=== PATIENT | female | born 1990 | race Caucasian/White ===

== ENCOUNTER 2024-11-20 15:51 | Inpatient (IN) | payer BC, SELFPAY ==
[2024-11-20] VITALS (17 sets, daily range): BP systolic 118–156; BP diastolic 68–104; PULSE 93–118; RESP 18; TEMP 36.5–37.4; O2SAT 100; BMI 34.7
[2024-11-20] MEDS: LACTATED RINGERS 1000 ML 1,000 ML 125 ML IV (15:45)
[2024-11-20] MEDS: AMPICILLIN 2 GM in 0.9 % SODIUM CHLORIDE Mini-bag 100 ML IVPB (15:46)
--- NOTE | 2024-11-20 16:03 | W.PM.LDBA ---
Subjective History of Present Illness Narrative: Latisha is a 34 year old at 40.2 weeks gestation being admitted to Labor and Delivery for spontaneous onset of labor. She reports she began having irregular contractions last evening but was not able to sleep much. The progressively became more intense and more regular, a more notable change at noon. She denies any bleeding or leaking of fluid. She is supported in labor by her , Venkatesh, and her printed circuit board reworker, Dominga. She is coping well with labor pain and desires a waterbirth. Her full history and physical was dictated by ABDIAZIZ Bhagat on 11/02/2024. Please see this for details. Mild range BP noted on admission labs, remained mild range with repeat. Labs collected with IV placement. Specific Issues/Plans G1 : Venkatesh Tx at 35 03/25 from [facility] H&P completed by ABDIAZIZ Bhagat on 11/02/2024 # GBS + in urine at NOB Recommend antibiotics in labor-planning to treat NOB labs 04/25/2024 Blood type: A+, antibody screen negative.??? Hgb: 13.2??? Platelets: 276??? Rubella: non-immune??? Varicella: not tested, declines RPR: non-reactive??? HBsAg: non-reactive??? Hep C: negative? HIV: negative??? UC: < 10,000 streptococcus (Group B)? GC/Chlamydia: negative/negative??? Pap (08/09): NIL??? Genetic screening: NIPT low risk? Maternal serum screen: 06/07/2024, low risk 1hr gtt (08/04): 124, passed ??? Ultrasounds: 1st trimester: 04/12/2024 Impression: SIUP measuring 8.1 weeks with SRIDHAR of 11/21/2024. Anatomy US: 07/06/2024 Impression: SIUP. Normal anatomic survey. EFW 372 g. OB - Problem Based A/P Additional Plan (1) Pain during labor: Status: Acute (2) GBS bacteriuria: Status: Acute (3) Rubella non-immune status, antepartum: Status: Acute (4) 40 weeks gestation of : Status: Acute Plan ASSESSMENT:? 34 at 40.2 weeks gestation? complicated by:?GBS bacteruria Labor type: Spontaneous, Active labor? Category 1 FHR pattern.?? Labor complicated by: none? GBS positive, membranes intact? ? PLAN:? 1. Routine intrapartum cares as ordered. Continue with expectant management. 2. Monitoring per policy, intermittent unless diagnosis of GHTN. Then continuous monitoring is recommended. 3. Planning unmedicated . Desires water . Consent signed. Hep C negative. Candidate for analgesia of choice, if desired.?? 4. Patient encouraged to reposition and ambulate to promote physiologic labor and .? 5. GBS prophylaxis initiated for GBS positive status. Will treat with antibiotics per protocol. 6. Elevated BP, mild range, on admission. Repeat remained mild range. Planned pre-e labs with IV placement. P/c ratio collected before patient entered the tub. No diagnosis of HTN at this time. Will continue to monitor BP hourly. 7. Anticipate ? Delivery/Labor/Induction Plan Plan: expectant management OB Exam Physical Exam Vital signs: Temp Pulse BP Pulse Ox 97.7 F 101 H 150/99 H 100 11/20/24 15:16 11/20/24 15:31 11/20/24 15:31 11/20/24 15:16 Narrative: Vitals Reviewed Constitutional:? Alert and oriented x3 HEENT:? Normocephalic, atraumatic Neck:? Supple Lungs:? Clear to auscultation bilaterally Heart:? Regular rate and rhythm, no murmur, rub or gallop Abdomen:? Soft, nontender, and gravid. Extremities:? No edema or erythema Cervix: 8 cm/90%/0 station/vertex confirmed by RN with cervical exam NST: 140 bpm/moderate variability/15x15 accelerations/no decelerations/contractions every 2-4 minutes Detailed Labor and Delivery Exam Patient Gravid: Yes
[2024-11-20 16:16] LABS: Hematocrit 35.4 % (33.0-51.0); Mean Corpuscular HGB Conc 34 gm/dL (32-36); Mean Corpuscular Hemoglobin 30 pg (26-34); Mean Corpuscular Volume 88 fL (80-100); Platelet Count* 170 K/uL (140-440); Red Blood Count 4.01 m/uL (4.00-5.20); White Blood Count* 11.34 K/uL (4.50-11.00)
[2024-11-20 16:21] LABS: Slide Review Reflex No
[2024-11-20 16:44] LABS: Alanine Aminotransferase* 36 U/L (4-35); Aspartate Amino Transferase* 31 U/L (12-35); Blood Urea Nitrogen* 11 mg/dL (5-24); Creatinine* 0.6 mg/dL (0.5-1.5); Est. Creatinine Clearance* 114.09; Estimated Glomerular Filt Rate 121 ml/min
[2024-11-20] MEDS: OXYTOCIN 10 UNIT/ML INJ IM (20:04)
[2024-11-20] MEDS: LIDOCAINE 1 % PF 30 ML INJECTION (20:12)
--- NOTE | 2024-11-20 20:53 | W.PM.OBVAGDE ---
OB Procedure Vag Delivery Mother Details Mother Details: Latisha is a 34 year-old, 1, now Para 1, admitted on 11/20/24 at 40.2 weeks gestation. : 1 Para: 1 Weeks Gestation: 40.2 Admission Date: 11/20/24 Additional Details Amniotic Membrane Status: SROM Amniotic Membrane Rupture Date: 11/20/24 Amniotic Membrane Rupture Time: 18:04 Amniotic Membrane Fluid Description: Clear Analgesia/Anesthesia Type: Local Waterbirth: Yes Pitcoin: Yes ([facility] only) Intrapartal Events: None Labor Onset: 12:00 Complete: 18:00 Pushin:00 Heart: heart tones during second stage were intermittently auscultated during labor and reassuring throughout. Delivery Details Delivery Date: 11/20/24 Delivery Time: 19:45 Route of delivery: Infant Gender: Female Infant Viability: Alive; Heart Rate Present Position at Delivery: OA Delivery Details: Patient was admitted for spontaneous onset of labor and progressed normally. She entered the tub at 1555 for labor pain management. SROM of clear fluid noted in the tub at 1804. She frequently changed positions to chris in labor progress. She was assumed complete with pushing at 1800. Vigorous bleeding noted with , heart tones were assessed and were reassuring. of a viable female at 1945, semi-reclined in the tub. Dad assisted in hand over hand delivery of . Vertex delivered OA. No nuchal cord or shoulder. Body delivered easily and without incident. passed to mothers abdomen with a vigorous cry. Cord was clamped and cut at > 5 minutes. APGARS were 8 at one minute and 8 at five minutes respectively. Mouth was bulb suctioned. was taken to the warmer while mother was assisted from the bed. Intact placenta with a 3 vessel cord delivered spontaneously at 2002. Fundus firm. Shallow 2nd degree perineal identified and repaired in typical fashion. Periurethral, central, hemostatic and not repaired. QBL 300 cc + 300 EBL in the tub. Bleeding in the tub was noted during . Mother and baby stable; mother plans to breastfeed. weight 8lb 11 oz. 1 Minute Interval Total Score: 8 5 Minute Interval Total Score: 8 Additional Details Shoulder Dystocia: No Placenta Delivery Time: 20:03 Placental Delivery Description: Spontaneous Delivery repair: Vicryl Procedure Done: Global Blood Loss: 600 Laceration: Perineal - 2nd Degree (shallow repaired; small midline periurethral not repaired) Blood Loss Measurement Type: QBL (+ EBL of tub) Bakri Used: No Sponge/Need Count Correct: Yes Cord Vessel Description: 3 Vessels Event Summary Status: Mother and infant were stable after delivery. Disposition: floor
[2024-11-20] MEDS: ACETAMINOPHEN 500 MG TABLET 1000 MG PO (21:56)
[2024-11-21 04:36] VITALS: BP 136/87; PULSE 93; RESP 16; TEMP 36.5; O2SAT 97
[2024-11-21 07:10] LABS: Hemoglobin* 9.4 gm/dL (12.0-16.0)
[2024-11-21] MEDS: ACETAMINOPHEN 500 MG TABLET 1000 MG PO (07:18)
--- NOTE | 2024-11-21 07:38 | PM.OBPNVD1 ---
OB - PN:Subj Subjective Date Seen: 11/21/24 Patient comments OB post-: no complaints, pain well controlled, tolerating diet and flatus present Crawley status: and doing well Crawley feeding status: exclusively Narrative: Latisha feels well.? Her pain is well controlled with current medications.?She is taking Tylenol and we discussed using ice and sits baths as well. She has no new complaints.? Urinary output is adequate and she is voiding without difficulty.? Has a good appetite, is tolerating a general diet, is passing flatus, and has not had a bowel movement.? Has small amount of rubra lochia.? She is ambulating well.?Baby is fussy and having difficulty with latching and settling. Encouraged assistance and naps as able. OB - PN: Obj Exam Physical Exam: Vital signs: Temp Pulse Resp BP Pulse Ox 97.7 F 93 16 136/87 97 11/21/24 04:36 11/21/24 04:36 11/21/24 04:36 11/21/24 04:36 11/21/24 04:36 Narrative: GENERAL APPEARANCE:? normal affect, alert, no distress? MOOD:? appropriate? CHEST:? clear to auscultation and percussion? HEART:? regular rate and rhythm? ABDOMEN:? soft, non-tender the uterine fundus is U/2 and is appropriate for the stage of recovery.? PERINEUM:? mild edema of the perineum, there is a 2nd laceration that is healing well.? EXTREMITIES:? normal and no edema? OB - PN: Obj Data Labs Labs: Laboratory Results - last 24 hr 11/20/24 11/21/24 15:59 06:57 WBC 11.34 H RBC 4.01 Hgb 12.0 9.4 L Hct 35.4 MCV 88 MCH 30 MCHC 34 Plt Count 170 BUN 11 Creatinine 0.6 Estimated Creat Clear 114.09 Estimated GFR 121 AST 31 ALT 36 H Blood Type A Positive Antibody Screen NEGATIVE OB - PN: A/P Delivery Assessment and Plan (1) GBS bacteriuria: Status: Acute (2) Rubella non-immune status, antepartum: Status: Acute (3) Gestational hypertension: Status: Acute (4) care following vaginal delivery: Status: Acute (5) Lactating mother: Status: Acute Plan day: 1 Plan: routine care Comments: Anticipate discharge home tomorrow.
[2024-11-21 08:24] VITALS: BP 120/83; PULSE 86; RESP 16; TEMP 36.6; O2SAT 96
[2024-11-21] MEDS: FERROUS SULFATE 325 MG TABLET PO (08:28)
[2024-11-21] MEDS: DOCUSATE SODIUM 100 MG CAPSULE PO (08:28)
[2024-11-21 11:40] VITALS: BP 124/83; PULSE 84; RESP 17; TEMP 36.6
[2024-11-21] MEDS: IBUPROFEN 600 MG TABLET PO ×2 (11:51→18:28)
[2024-11-21 16:00] VITALS: BP 123/84; PULSE 91; RESP 18; TEMP 36.7; O2SAT 98
[2024-11-21 20:00] VITALS: BP 127/83; PULSE 98; RESP 18; TEMP 36.9; O2SAT 98
[2024-11-21 23:27] VITALS: BP 125/81; PULSE 96; RESP 20; O2SAT 97
[2024-11-22] MEDS: IBUPROFEN 600 MG TABLET PO ×2 (03:15→09:58)
[2024-11-22 03:48] VITALS: BP 137/83; PULSE 88; RESP 14; TEMP 36.8; O2SAT 96
--- NOTE | 2024-11-22 06:50 | P.DS_ITS ---
DS: Providers Provider Date Seen: 11/22/24 Date of admission: 11/20/24 15:51 Primary care physician: Not a Local Provider Admitting Clinician: Layla Hitchcock CNM Attending Physician on discharge: Layla Hitchcock CNM DS: Diagnosis Discharge Diagnosis (1) care following vaginal delivery: Status: Acute (2) Lactating mother: Status: Acute (3) Gestational hypertension: Status: Acute Exam Narrative: Exam Narrative: GENERAL APPEARANCE:? normal affect, alert, no distress MOOD:? appropriate CHEST:? clear to auscultation HEART:? regular rate and rhythm ABDOMEN:? soft, non-tender the uterine fundus is at Umbilicus, Midline and is appropriate for the stage of recovery. PERINEUM:? mild edema of the perineum, there is a Perineal Laceration,?2nd degree, that is healing well. EXTREMITIES:? normal and no edema Const: Vital Signs, click to edit/add: Vital Signs - 24 hr 11/21/24 08:24 11/21/24 11:40 11/21/24 16:00 Temperature 97.9 F 97.9 F 98.0 F Pulse Rate [Blood Pressure Cuff] 86 84 91 Respiratory Rate 16 17 18 Blood Pressure [Le ft Arm] 120/83 124/83 123/84 Pulse Oximetry 96 98 Oxygen Delivery Me thod Room Air Room Air Room Air 11/21/24 20:00 11/21/24 23:27 11/22/24 03:48 Temperature 98.5 F 98.3 F Pulse Rate [Blood Pressure Cuff] 98 96 88 Respiratory Rate 18 20 14 Blood Pressure [Le ft Arm] 127/83 125/81 137/83 Pulse Oximetry 98 97 96 Oxygen Delivery Me thod Room Air Room Air Room Air Documenting provider has reviewed patient's vital signs: yes OB - DS: Summary Hospital Course Hospital Course: Latisha is a 34 y.o. G 1 P 1 who was admitted to L & D for spontaneous onset of labor. ?She had a NVD that was uncomplicated. The patient feels well. ?The pain is well controlled with current medications. ?She has no new complaints. ?She is breast feeding and reports things are going well. the patient has done well.? Vitals have been stable.? She has remained afebrile.? Has a good appetite, is tolerating a general diet. ?She is voiding without difficulty.? She is passing gas and has not had a bowel movement.? She is ambulating and denies any dizziness.? Has small amount of rubra lochia. She is planning IUD for prevention. Problems: GHTN diagnosed in labor Peripartum Data Infant delivery method: Vaginal complications: none Infant Gender: Female Discharge Plan: Home Status at Discharge Functional status at discharge: independent ambulation Overall status at discharge: patient is progressing back to baseline Time Spent with Patient Time attestation: Total time spent providing and/or coordinating discharge services: Discharge Plan Discharge Disposition: Home, Self-Care Date of Admission: 11/20/24 15:51 Attending Provider on Discharge: Layla Hitchcock Primary Care Provider: Provider,Not a Local Condition: Stable Anticipated Discharge Date/Time: 11/22/24 12:00 Discharge Medications: New acetaminophen 500 mg Tablet 1,000 mg PO Q6H PRNQty: 0 0RF ferrous sulfate 325 mg (65 mg iron) Tablet 325 mg PO Q48H Qty: 60 0RF docusate sodium 100 mg Capsule 100 mg PO DAILY Qty: 90 0RF ibuprofen 600 mg Tablet 600 mg PO Q6H PRNQty: 60 0RF Continued PHH-bhmr-PM-omega 3-fat com #1 27-1-300 mg capsule 1 cap PO DAILY Calcium 600 with Vitamin D3 600 mg-10 mcg (400 unit) tablet,chewable 1 tab PO DAILY (DME) blood pressure monitor Kit See Rx Instructions .Route Qty: 1 0RF Rx Instructions: As directed Discharge Orders: Discharge Order (Routine); Ordered 11/22/24 Ordered By: Layla Hitchcock Patient Education: OB Over the Counter Medication Information, OB Vaginal/Breast Feeding Additional Instructions: Discharge instructions were reviewed with the patient including signs and symptoms of infection and home going medications Nothing vaginally for 6 weeks: no tampons or intercourse Do not drive while taking narcotic pain medication(s) Off Work or School for 8 weeks [facility] for a BP check?3-5 days * Call with BP greater than or equal to 160/110 * Severe headache that doesn't improve after taking medications * Changes in vision, including temporary loss of vision, blurred vision, and/or light sensitivity * Upper abdominal pain (usually under ribs on the right side) 2-week visit: discuss infant feeding concerns, review control options and screen for anxiety/depression. 6-week visit for an annual exam. consultation services are available to all mothers and babies for the first year after delivery.? To make an appointment, please call [phone]. Activity Level: Activity as Tolerated Discharge Diet: Regular Follow Up Appointments: [facility] [Provider Group] Forms: [employer] Info Instructions
[2024-11-22] MEDS: DOCUSATE SODIUM 100 MG CAPSULE PO (07:40)
[2024-11-22] MEDS: ACETAMINOPHEN 500 MG TABLET 1000 MG PO (07:40)
[2024-11-22] MEDS: MEASLES,MUMPS,RUBELLA VACC/PF 1 DOSE INJ 1 EACH SUBCUT (07:46)
[2024-11-22 07:58] VITALS: BP 119/82; PULSE 86; RESP 16; TEMP 36.4; O2SAT 96
--- NOTE | 2024-11-22 13:42 | PC.NURSE ---
Provided a home blood pressure cuff to patient. Educated on when to check it, how to use it and when to notify provider. patient will call to schedule a BP check in 3-5 days with nurse in clinic.
[2024-11-22 18:05] LABS: Rapid Plasma Reagin (RPR) Non Reactive (Non Reactive)
== END 2024-11-22 14:53 | disposition home or self-care (01) | DRG 560 ==
LOC: OB OUT 15:57 → OB 15:57
PROVIDERS: Admitting Provider Advanced Practice Midwife; Visit Provider Advanced Practice Midwife
DX: O13.4 Gestational [pregnancy-induced] hypertension without significant proteinuria, complicating childbirth (principal); Z3A.40 40 weeks gestation of pregnancy; Z37.0 Single live birth; O70.1 Second degree perineal laceration during delivery; O99.824 Streptococcus B carrier state complicating childbirth; Z78.9 Other specified health status
CPT/HCPCS: 36415; 82565; 82570; 84156; 84450; 84460; 84520; 85018; 85027; 86592; 86850; 86900; 86901; A9270; J0290; J2003; J2590; J7120

== ENCOUNTER 2024-11-25 14:25 | Outpatient (CLI) | payer BC, SELFPAY ==
--- NOTE | 2024-11-25 16:19 | W.PM.LAC.MC ---
Consult Note - Mom Date of Visit Date of visit: 11/25/24 Reason for consultation: Breast/Nipple Issue and Weight Concern Visit Code: Visit Patient's Information Phone number: [phone] : 1 Para: 1 Allergies duck eggs Allergy (Uncoded 11/16/24 09:44) Mother's Medical History: Medical History (Updated 11/24/24 @ 00:00 by Background Daemon) History of varicella as a child ?Z86.19 - Personal history of other infectious and parasitic diseases (ICD-10) Work Plans: return to work February 2025 Delivery Information Delivery type: Vaginal Gestational Age: 40+2 Gestational Weight For Age: AGA Weight: 3.93 kg Discharge Weight: 3.68 kg Percentage weight loss: 7.6 Baby's Information Baby's Age at Visit: 5 days Baby's Provider or Clinic: [facility] Jaundice: No Past Experience Past Experience: No Current Frequency of Day Feedings: every 3 hours Frequency of Night Feedings: every 3 hours Both Breasts: Yes Suck: strong Latch: deep, comfortable Length of Time: 10-15 min ea side Goals: depends on how it goes, breastfeed while home, combo when return to work Pumping Pumping: Yes Quantity Pumped: 45 ml pumped this morning Supplementing EBM Supplement: Yes Formula Supplement: Yes Baby Elimination Number of Wet Diapers a Day: 6 a day Number of BM a Day: 5-6 in the last 24 hours Breast/Nipple Condition Breast Information: Breasts are symmetrical with rounded lower quadrants, intramammary distance is less than 1.5 inches. No erythema. Nipples are supple, everted prior to feeding. Breast Shape: Round and Pliable Engorgement: No Maternal Nipple Condition - Left: Short Maternal Nipple Condition - Right: Short Sore Nipples: No Interventions for Sore Nipples: Lansinoh/Nipple Cream Baby Assessment Skin: Normal Tongue/frenulum: Normal/elastic Palate: Average Lips: Relaxed and Symmetrical Jaw Alignment: Symmetrical Mucosa: [place], moist Onsite Observation Pre-Feed weight: 3.53 kg (down 20 gms from yesterday) Post-Feed weight: 3.592 kg Milk Transferred (mL): 62 (8ml R breast, 14ml L breast, 40ml formula via paced bottle feeding) Position: Cross cradle Attachment/latch-on achieved: Easily Suck pattern: Extended suck phase Swallow: Occasionally Behavior following feed: Alert, fussy Pre-Nursing Left Nipple: Within Normal Limits Pre-Nursing Right Nipple: Within Normal Limits Post-Nursing Left Nipple: Within Normal Limits Post-Nursing Right Nipple: Within Normal Limits Assessments/Interventions Assessments/Interventions: observation Kelly latched easily to mom's breasts bilaterally; moved into a deep, rhythmic pattern of suckling. Swallows about every 6-7 sucks noted, but kelly stayed engaged in feeding well. Mom reports no nipple pain with feeding Education provided: Early feeding cues to maximize timing of latching, Asymmetric latch technique for wide/deep latch to increase milk, Transfer for baby and increase comfort for mom, Supply/demand nature of milk supply, Need for frequent stimulation/milk removal, Alternative feeding methods (SNS, cup, finger feeding, bottling), Pumping for milk management and Milk collection, storage Handouts Provided: Paced bottle feeding Collection and storage of pumped milk Feeding Plan: Breastfeed for 10-15 min on each breast, listening for active swallowing. Ok to keep to 10 min ea breast given amount of milk transfer and need to supplement. Pump both breasts for: 15-20 minutes after each feeding; a full 20 minutes if pumping instead of Offer baby 60 ml of pumped milk and/or formula every 2-3 hours based on feeding cues; expect as milk comes in more baby will take less, especially if offering via paced bottle feeding Use a syringe/feeding tube, cup, or bottle for feedings based on preference; bottle options discussed Rest, and repeat every 2-3 hours, watch for early feeding cues Try skin to skin to increase milk production Follow-Up Suggested follow up: Appointment in 1-3 days Time Spent Time spent with patient (min): 90 (face to face with patient, and ) Meds Home Medications and Allergies Home Medications ?Medication ?Instructions ?Recorded ?Confirmed ?Type CKX-[id number]-ND-omega 3-fat com #1 27 1 cap PO DAILY 10/20/24 11/20/24 History mg-1 mg-300 mg capsule calcium 600 mg (as carbonate)-vit 1 tab PO DAILY 10/20/24 11/20/24 History D3 10 mcg (400 unit) chewable tablet (Calcium 600 with Vitamin D3) Allergies Allergy/AdvReac Type Severity Reaction Status Date / Time duck eggs Allergy Uncoded 11/16/24 09:44
== END 2024-11-25 14:26 | disposition home or self-care (01) ==
LOC: OB LAC 14:26
PROVIDERS: Visit Provider Advanced Practice Midwife
DX: Z39.1 Encounter for care and examination of lactating mother (principal)
CPT/HCPCS: G0463

== ENCOUNTER 2024-11-28 10:29 | Outpatient (CLI) | payer BC, SELFPAY ==
--- NOTE | 2024-11-28 12:05 | W.PM.LAC.MF ---
Follow-Up Note: Mom Date of visit Date of visit: 11/28/24 Reason for consultation: Assistance Needed, Breast/Nipple Issue and Low Milk Supply (vs milk transfer issue?) Visit Code: Visit Patient's Information Allergies duck eggs Allergy (Uncoded 11/16/24 09:44) Delivery Information Weight: 3.93 kg Last Weight: 3.53 kg (10.2% loss) Baby's Information Baby's name: Selma Pulido Baby's Age at Visit: 8 days Baby's Provider or Clinic: [facility] Current Frequency of Day Feedings: every 3 hours, sometimes hard to wake up Frequency of Night Feedings: every 3 hours Both Breasts: Yes Suck: strong, not hear much swallowing Latch: mom thinks ok Length of Time: 10-12 min ea side Pumping Pumping: Yes Quantity Pumped: 28ml - 77ml/session Supplementing EBM Supplement: Yes Formula Supplement: Yes (babe has taken 60-100ml after ) Baby Elimination Number of Wet Diapers a Day: ea feeding Number of BM a Day: ea feeding Breast/Nipple Assessment Breast Shape: Round and Pliable Engorgement: No Maternal Nipple Condition - Left: Short Maternal Nipple Condition - Right: Short Sore Nipples: Yes (slight) Interventions for Sore Nipples: Lansinoh/Nipple Cream Onsite Observation Pre-feed weight: 3.706 kg (up 176gms in 3 days (average 58gm/day); now 5.7% wt loss) Post-Feed weight: 3.73 kg Milk Transferred (mL): 24 Pre-Nursing Left Nipple: Within Normal Limits Pre-Nursing Right Nipple: Within Normal Limits Post-Nursing Left Nipple: Creased/Beveled (slight crease) Post-Nursing Right Nipple: Creased/Beveled (slight crease) Assessments/Interventions Assessments/Interventions: observation: Mom able to latch baby to the breast quite easily; babe nursed for 15 min on her RIGHT breast, transferred 20 ml babe nursed for 15 min on her LEFT breast, transferred 4 ml, but very sleepy for feeding Worked with mom on both sides for a deeper latch Discussed role of deep latch as it relates to effective milk transfer; mom also doing breast compression after 5-7 minutes of feeding to help keep baby engaged in feeding process and get more milk to baby Mom to continue pumping to aid in building milk supply Bbae will be seen the end of this week for well child/weight check; parents will plan f/u here based on how the next few days go re: latching ability, milk supply, need to supplement. Education provided: Early feeding cues to maximize timing of latching, Asymmetric latch technique for wide/deep latch to increase milk, Transfer for baby and increase comfort for mom, Supply/demand nature of milk supply, Need for frequent stimulation/milk removal, Alternative feeding methods (SNS, cup, finger feeding, bottling), Pumping for milk management and Milk collection, storage Follow-Up Suggested follow up: Appointment as needed Time Spent Time spent with patient (min): 90 (time with patient, and ) Meds Home Medications and Allergies Home Medications ?Medication ?Instructions ?Recorded ?Confirmed ?Type HDA-frcn-NS-omega 3-fat com #1 27 1 cap PO DAILY 10/20/24 11/20/24 History mg-1 mg-300 mg capsule calcium 600 mg (as carbonate)-vit 1 tab PO DAILY 10/20/24 11/20/24 History D3 10 mcg (400 unit) chewable tablet (Calcium 600 with Vitamin D3) Allergies Allergy/AdvReac Type Severity Reaction Status Date / Time duck eggs Allergy Uncoded 11/16/24 09:44
== END 2024-11-28 10:30 | disposition home or self-care (01) ==
LOC: OB LAC 10:29
PROVIDERS: Visit Provider Obstetrics & Gynecology
DX: Z39.1 Encounter for care and examination of lactating mother (principal)
CPT/HCPCS: G0463

== ENCOUNTER 2024-12-20 09:28 | Outpatient (CLI) | payer BC, SELFPAY ==
--- NOTE | 2024-12-20 11:15 | W.PM.LAC.MF ---
Follow-Up Note: Mom Date of visit Date of visit: 12/20/24 Reason for consultation: Assistance Needed (milk transfer evaluation) Visit Code: Visit Patient's Information Allergies duck eggs Allergy (Uncoded 12/05/24 13:49) Delivery Information Weight: 3.93 kg Last Weight: 3.98 kg Baby's Information Baby's name: Selma Pulido Baby's Age at Visit: 1m 2d Baby's Provider or Clinic: [facility] Current Frequency of Day Feedings: every 3 hours Frequency of Night Feedings: every 3.5 hours, parents waking for noc feedings Both Breasts: Yes Suck: nadia Latch: comfortable per mom Length of Time: 15-20 min ea side in day, 10-15 min ea side at noc Pumping Pumping: Yes Quantity Pumped: 80-90ml after 1st feeding; 40-50ml after 2nd feeding Supplementing EBM Supplement: Yes (offered 30ml after first 2 fdgs of the day; and if acts hungry later in the) Formula Supplement: No Baby Elimination Number of Wet Diapers a Day: ea feeding Number of BM a Day: 6+/day Breast/Nipple Assessment Breast/Nipple Assessment: Breasts are symmetrical with rounded lower quadrants, intramammary distance is less than 1.5 inches. No erythema. Nipples are supple, everted prior to feeding. Breast Shape: Round Engorgement: No Maternal Nipple Condition - Left: Common Nipple and Short Maternal Nipple Condition - Right: Common Nipple and Short Sore Nipples: No Onsite Observation Pre-feed weight: 4.374 kg Post-Feed weight: 4.426 kg Milk Transferred (mL): 52 Pre-Nursing Left Nipple: Within Normal Limits Pre-Nursing Right Nipple: Within Normal Limits Post-Nursing Left Nipple: Within Normal Limits Post-Nursing Right Nipple: Within Normal Limits Assessments/Interventions Assessments/Interventions: Current feeding routine: Feeds every 3 hours/day at home, every 3.5 hours at night. Parents waking baby for night feedings, but she doesn't feed very well mom notices. Very sleepy for feedings. Mom pumps after first two morning feedings at approx 7am and 10am; she gets 80-90 ml with first pump and then 40-50ml with second pump; both of these pumps are after feedings. Baby is offered 30ml EBM at these two feedings as well. Often takes it all, but can take another 20-30 min for her to drink it down. Not very eager with bottle feeding (using [place] [employer] bottles) Sometimes baby gets 30 ml 1-2 more times/day based on showing signs of hunger after feedings, but not always. Often seems content after breastfeedings. Feeding plan Continue feeding every 3 hours during to day, ok to let baby go longer stretches at night and feed when she wakes up since well beyond weight. Currently feeding every 3.5 hours; consider stretching to 4 hours for 3 nights, then 4.5 hours for 3 nights, etc to allow mom's body to adjust to longer stretches. Discussed if baby does go longer stretches between feedings, this may allow mom's menstrual cycle to return. Continue pumping after morning feed for increased milk supply and for supplement later in day if desired. Supplement based on feeding cues; ok to skip AM scheduled supplement after 2 morning feedings; baby likely taking a long time to drink extra EBM if she is filling up at the breast. If skip 2 supplemental feeds in the morning, baby may have some cluster feedings in the evening of nursing every 1-2 hours for several hours in a row. Discussed this is normal behavior, helps the baby fill up before bed and allow a longer sleep stretch, and maintain mom's milk supply. As decrease supplemental bottle feedings, discussed continuing to offer a bottle at least every 3 days to maintain baby's ability/willingness to drink from a bottle as mom will return to work in January 2025. Discussed other bottle options that may help baby go back and forth from breast to bottle more easily (Spectra wide neck, Lansinoh, Evenflo Balance Wide neck) Education provided: Early feeding cues to maximize timing of latching, Asymmetric latch technique for wide/deep latch to increase milk, Transfer for baby and increase comfort for mom, Supply/demand nature of milk supply, Need for frequent stimulation/milk removal, Alternative feeding methods (SNS, cup, finger feeding, bottling), Pumping for milk management and Milk collection, storage Follow-Up Suggested follow up: Appointment as needed Time Spent Time spent with patient (min): 75 (reviewing EMR and face to face with mom and baby) Meds Home Medications and Allergies Home Medications ?Medication ?Instructions ?Recorded ?Confirmed ?Type LLX-thto-XL-[id number] 3-fat com #1 27 1 cap PO DAILY 10/20/24 12/05/24 History mg-1 mg-300 mg capsule calcium 600 mg (as carbonate)-vit 1 tab PO DAILY 10/20/24 12/05/24 History D3 10 mcg (400 unit) chewable tablet (Calcium 600 with Vitamin D3) Allergies Allergy/AdvReac Type Severity Reaction Status Date / Time duck eggs Allergy Uncoded 12/05/24 13:49
== END 2024-12-20 09:29 | disposition home or self-care (01) ==
LOC: OB LAC 09:30
PROVIDERS: Visit Provider Obstetrics & Gynecology
DX: Z39.1 Encounter for care and examination of lactating mother (principal)
CPT/HCPCS: G0463

== ENCOUNTER 2025-05-02 09:30 | Outpatient (RCR) | payer BC, SELFPAY | END 2025-08-30 23:59 | disposition home or self-care (01) | PROVIDERS: Visit Provider Physician Assistant | DX: N81.89 Other female genital prolapse (principal); N39.490 Overflow incontinence; Z51.89 Encounter for other specified aftercare | CPT/HCPCS: 97112; 97140; 97161; 97530 ==